=== PATIENT | female | born 1970 | race Caucasian/White ===

== ENCOUNTER → 2018-03-10 08:34 | Outpatient (CLI) | payer OTHER, SELFPAY ==
--- NOTE | 2018-03-10 | DI.MRI.S_ITS ---
PROCEDURE: MR HEAD/BRAIN WO CON INDICATIONS: MIGRAINE OSTEOPOROSIS TECHNIQUE: Noncontrast axial T1 spin echo, axial T2 fast spin echo, sagittal and axial FLAIR, coronal T2 fast spin echo, axial gradient echo, axial diffusion and ADC through the brain. COMPARISON: None. FINDINGS: Image quality: Excellent. CSF Spaces: Basal cisterns are patent. No extra-axial fluid collections. Ventricles are normal in size and shape. Brain: No intracranial masses or hemorrhage. Wilson/white matter interface is normal. Brainstem appears normal. Diffusion-weighted images demonstrate no acute ischemic insult. No chronic ischemic insults. Normal intravascular flow voids are present. Skull and face: Calvarium has normal marrow signal. Orbits appear normal. Sinuses: Sinuses and mastoids are clear. IMPRESSION: No intracranial disease process. Dictated by: Kimberlyn Rae MD, PhD on 03/10/2018 at 10:12 Approved by: Kimberlyn Rae MD, PhD on 03/10/2018 at 10:14
== END ==
PROVIDERS: PCP Naturopath; Visit Provider Naturopath
DX: G43.909 Migraine, unspecified, not intractable, without status migrainosus (principal); Z13.820 Encounter for screening for osteoporosis; M85.851 Other specified disorders of bone density and structure, right thigh
CPT/HCPCS: 70551; 77080

== ENCOUNTER 2019-09-07 16:49 | Emergency (ER) | payer OTHER, SELFPAY ==
[2019-09-07 16:59] VITALS: BP 139/84; PULSE 79; RESP 18; TEMP 36.3; O2SAT 100
--- NOTE | 2019-09-07 18:07 | ED.DIZZY ---
HPI - Dizziness General Chief Complaint: Dizziness Stated Complaint: DIZZY HEADACHE MIGRAINE TOLD BY EYE DOCTOR COME Time Seen by Provider: 09/07/19 18:06 Source: patient Mode of arrival: Ambulatory Limitations: no limitations History of Present Illness HPI Narrative: Female nonsmoker with history of Lyme disease presents with her in the chief complaint of headaches and some nausea for about three weeks. She went to see her regular provider today and she noticed that the patient's left eye seemed to not line up. She then called her railroad firer whom directed her to the ED. Patient has not had any recent injuries or trauma. She denies any other focal neurologic findings such as trouble with speech, numbness, tingling or weakness nor ataxia. Patient states she does not really know when her symptoms started but she does admit to double vision particularly when objects are close. MD complaint: dizziness Onset (ago): week(s) Timing: unsure History of similar episodes: No History of trauma: No Severity: mild Associated symptoms: vision changes Related Data Allergies Allergy/AdvReac Type Severity Reaction Status Date / Time Penicillins Allergy Unknown Verified 09/07/19 19:51 PENICILLIN Allergy Mild Uncoded 01/29/18 12:20 Review of Systems Constitutional Constitutional: Denies chills, Denies fatigue, Denies fever(s), Denies frequent falls, Denies lethargy and Denies weakness Eyes Eyes: Denies change in vision, Reports diplopia, Denies eye discharge, Denies irritation and Denies loss of vision ENT Ears, Nose, Mouth, and Throat: Denies change in voice, Denies dizziness, Denies neck pain, Denies sore throat and Denies throat swelling Cardiovascular Cardiovascular: Denies chest pain, Denies irregular heart rhythm, Denies lightheadedness, Denies palpitations, Denies dyspnea, Denies dyspnea on exertion and Denies orthopnea Respiratory Respiratory: Denies cough, Denies dyspnea, Denies dyspnea on exertion and Denies wheezing Gastrointestinal Gastrointestinal: Denies abdominal pain, Denies change in bowel habits, Denies diarrhea, Denies nausea and Denies vomiting Genitourinary Genitourinary: Denies hematuria, Denies flank pain, Denies urinary incontinence and Denies urinary urgency Musculoskeletal Musculoskeletal: Denies back pain, Denies muscle weakness, Denies neck pain, Denies numbness and Denies tingling Integumentary/Breasts Skin/Breast: Denies pruritus, Denies erythema, Denies rash and Denies wounds Neurologic Neurologic: Denies behavioral changes, Denies confusion, Denies dizziness, Denies frequent falls, Denies loss of vision, Denies numbness, Denies tingling and Denies weakness Psychiatric Psychiatric: Denies anxiety, Denies behavioral changes, Denies confusion, Denies depression, Denies homicidal ideation and Denies suicidal ideation Endocrine Endocrine: Denies fatigue, Denies flushing and Denies palpitations Hematologic/Lymphatic Hematologic/Lymphatic: Denies easy bruising Allergic/Immunologic Allergic/Immunologic: Denies urticaria, Denies throat swelling and Denies wheezing Patient History Medical History Celiac disease (Acute) Lyme disease (Acute) Surgical History History of third molar tooth extraction Status post laparoscopic supracervical hysterectomy Status post tonsillectomy and adenoidectomy Exam Narrative Exam Narrative: GENERAL: [49] year old patient appears stated age. Well-nourished, well-developed patient, in mild distress. HEAD: Atraumatic. Normocephalic. EYES: Pupils equal round and reactive. Extraocular motions intact in R eye, but L eye is slightly limited. With eyes looking to her left her L eye does not fully gaze laterally, however when looking to the R she has no trouble No scleral icterus. No injection or drainage. ENT: Nose without bleeding, purulent drainage. Throat without erythema, tonsillar hypertrophy or exudate. Airway patent. NECK: Trachea midline. Non tender CARDIOVASCULAR: Regular rate and rhythm without murmurs, gallops, or rubs. RESPIRATORY: Clear to auscultation. Breath sounds equal bilaterally. No wheezes, rales, or rhonchi. GASTROINTESTINAL: Abdomen soft, non-tender, nondistended. EXTREMITIES: No edema or joint tenderness. BACK: Nontender without deformity or crepitance. No flank tenderness. NEURO: AOx3. SKIN: No rash or erythema of visible areas Initial Vital Signs Initial Vital Signs: Vital Signs Temperature 97.4 F L 09/07/19 16:59 Pulse Rate 79 09/07/19 16:59 Respiratory Rate 18 09/07/19 16:59 Blood Pressure 139/84 09/07/19 16:59 Pulse Oximetry 100 09/07/19 16:59 Scores NIH Stroke Scale Level of Conciousness: Alert, keenly responsive Ask month/age: Answers both questions correctly. Open/close eyes, close hand: Performs both tasks correctly Best gaze horizontal: Partial gaze palsy, can be overcome by finger tracking, head turning Visual gonzales: No visual loss Facial palsy: Normal symetrical movement Left arm drift: No drift for full 10 sec Right arm drift: No drift for full 10 sec Left leg drift: No drift for full 10 sec Right leg drift: No drift for full 10 sec Limb ataxia: Absent Sensory on face/arms/legs: Normal, no sensory loss Best language: No aphasia, normal Dysarthria: Normal Extinction or inattention: No abnormality Total NIH Stroke scale score: 1 Course Orders Ordered: ED Orders 09/07/19 18:52 CT head/brain wo con Stat EKG-12 Lead Stat 09/07/19 19:25 Basic Metabolic Panel Stat Complete Blood Count AUTO DIFF Stat Partial Thromboplastin Time Stat Prothrombin Time INR Stat 09/07/19 19:40 MR stroke Stat 09/07/19 20:38 CT angio head and neck Stat Discontinued Medications Sodium Chloride (Normal Saline 0.9%) 1,000 mls @ 150 mls/hr IV CONT CANDY Last Infusion: 09/07/19 21:30 Dose: 0 mls/hr Documented by: Admin: 09/07/19 19:28 Dose: 150 mls/hr Documented by: LOU Consultations Consultation #1: call to stroke physician at [facility] upon receipt of normal imaging. He states workup is complete for now and that DC home with ophtho follow up is appropriate. Vital Signs Vital signs: Vital Signs - 8 hr 09/07/19 19:48 09/07/19 23:00 Pulse Rate 78 87 Respiratory Rate 18 18 Blood Pressure [Left Arm] 137/58 L 129/73 Pulse Oximetry 98 97 MDM - Dizziness Lab Data Result diagrams: 09/07/19 19:25 09/07/19 19:25 Labs: Lab Results 09/07/19 09/07/19 09/07/19 Range/Units 19:25 19:25 19:25 WBC 6.0 (4.5-11.0) X10^3/uL RBC 4.23 (4.0-5.2) X10^6/uL Hgb 13.5 (12.0-16.0) g/dL Hct 39.4 (36-46) % MCV 93.0 (80-100) fL MCH 31.8 (26-34) PG MCHC 34.2 (30-36) % RDW 12.4 (11.6-14.8) % Plt Count 273 (150-400) X10^3/uL Neut % (Auto) 62.7 (50-75) % Lymph % (Auto) 29.7 (25-40) % [place] % (Auto) 6.4 (3-14) % Eos % (Auto) 0.6 L (2-4) % Baso % (Auto) 0.6 (0-2) % Neut # (Auto) 3700 (0264-1195) /uL Lymph # (Auto) 1800 (7253-3785) /uL [place] # (Auto) 400 (0-900) /uL Eos # (Auto) 0 (0-450) /uL Baso # (Auto) 0 (0-100) /uL PT 11.3 (10.1-12.7) SECONDS INR 1.0 (0.9-1.3) APTT 33 (26.4-36.2) SECONDS Sodium 139 (137-145) mmol/L Potassium 4.3 (3.4-5.1) mmol/L Chloride 100 (98-107) mmol/L Carbon Dioxide 31 (22-32) mmol/L BUN 19 H (7-17) mg/dL Creatinine 0.60 (0.52-1.04) mg/dL Estimated GFR > 60.0 (>60) mL/min BUN/Creatinine Ratio 31.7 H (6-22) Glucose 94 (70-100) mg/dL Calcium 9.3 (8.4-10.2) mg/dL Imaging Data CT scan - head: Radiologist's impression: [address] [address] [address] Scan Report Signed Patient: Lorraine Siddiqi [facility]#: [id number] : 1970Acct:[id number] Age/Sex: 49 / FDate of Service: 09/07/19 Loc: ED Accession Number: [id number] Procedure: CT angio head and neck Ordering Provider: Nayan Beltre D.O. PROCEDURE: CT ANGIO HEAD AND NECK INDICATIONS: cranial 6 nerve palsy TECHNIQUE: Pre-contrast 4.5 mm thick sections acquired from the foramen magnum to the vertex. After the administration of intravenous contrast, 1 mm thick sections acquired from the aortic arch through the [place] of [place]. Post-contrast 4.5 mm thick sections then re-acquired from the foramen magnum to the vertex. 3-dimensional emuylbq-ohqsdeark-mhjbvremld (MIP) and/or volume rendering reformats were acquired of the central intracranial vasculature and neck separately. COMPARISON: [facility], MR, MR HEAD/BRAIN WO CON, 03/10/2018, 9:36. [facility], CT, CT HEAD/BRAIN WO CON, 09/07/2019, 18:54. FINDINGS: Image quality: Evaluation limited by venous opacification. BRAIN: CSF spaces: Basal cisterns are patent. No extra-axial fluid collections. Ventricles are normal in size and shape. Brain: No intracranial hematoma collection, mass, or mass effect. Wilson-white matter interface is preserved. No abnormal intracranial enhancement. Skull and face: Calvarium and facial bones appear intact, without suspicious lesions. Orbits appear normal. Sinuses: Sinuses and mastoids are clear. HEAD CT ANGIOGRAPHY: Anterior circulation: Intracranial internal carotid arteries are patent bilaterally. The paired anterior cerebral arteries are patent bilaterally. The middle cerebral arteries are patent bilaterally. The anterior communicating artery is patent. No high-grade stenosis, occlusion, or aneurysms identified. Posterior circulation: Visualized portions of the vertebral arteries demonstrate are patent bilaterally and join to form a patent basilar artery. The posterior cerebral arteries are patent bilaterally. The posterior communicating arteries appear patent without aneurysms. No high-grade stenoses, vascular occlusion, or aneurysm identified. NECK CT ANGIOGRAPHY: Carotid system: The great vessels demonstrate a conventional anatomy as they arise from the aortic arch. The origins of the common carotid arteries appear patent. The common carotid arteries demonstrate normal caliber and courses. The bifurcation regions are both widely patent. The internal carotid arteries demonstrate normal calibers and courses. Posterior circulation: The origins of the vertebral arteries both appear widely patent. The more superior extracranial portions of both vertebral arteries also demonstrate normal courses and calibers. They join to form a normal appearing basilar artery. Soft tissues: Visualized neck soft tissues demonstrate no suspicious abnormalities. Bones: No suspicious bony lesions. Visualized cervical spine appears normally aligned. IMPRESSION: 1. No discrete cerebral aneurysm. 2. No high-grade stenosis or occlusion of the central intracranial arteries. 3. No high-grade stenosis or occlusion of the head and neck arteries. The carotid bulbs appear widely patent. 4. No definite acute intracranial abnormality. Any quantitative measurements of stenosis were performed using NASCET criteria. Dictated by: Miguel Angel Urias M.D. on 09/07/2019 at 21:37 Approved by: Miguel Angel Urias M.D. on 09/07/2019 at 21:44 CTA Head/Neck: Radiologist's impression: [place] [address] CT Scan Report Signed Patient: Lorraine Siddiqi MMR#: [id number] : 1970Acct:[id number] Age/Sex: 49 / FDate of Service: 09/07/19 Loc: ED Accession Number: [id number] Procedure: CT angio head and neck Ordering Provider: Nayan Beltre D.O. PROCEDURE: CT ANGIO HEAD AND NECK INDICATIONS: cranial 6 nerve palsy TECHNIQUE: Pre-contrast 4.5 mm thick sections acquired from the foramen magnum to the vertex. After the administration of intravenous contrast, 1 mm thick sections acquired from the aortic arch through the [place] of [place]. Post-contrast 4.5 mm thick sections then re-acquired from the foramen magnum to the vertex. 3-dimensional ckvurtv-qogrhlcti-tpvdubybbj (MIP) and/or volume rendering reformats were acquired of the central intracranial vasculature and neck separately. COMPARISON: [facility], MR, MR HEAD/BRAIN WO CON, 03/10/2018, 9:36. [facility], CT, CT HEAD/BRAIN WO CON, 09/07/2019, 18:54. FINDINGS: Image quality: Evaluation limited by venous opacification. BRAIN: CSF spaces: Basal cisterns are patent. No extra-axial fluid collections. Ventricles are normal in size and shape. Brain: No intracranial hematoma collection, mass, or mass effect. Wilson-white matter interface is preserved. No abnormal intracranial enhancement. Skull and face: Calvarium and facial bones appear intact, without suspicious lesions. Orbits appear normal. Sinuses: Sinuses and mastoids are clear. HEAD CT ANGIOGRAPHY: Anterior circulation: Intracranial internal carotid arteries are patent bilaterally. The paired anterior cerebral arteries are patent bilaterally. The middle cerebral arteries are patent bilaterally. The anterior communicating artery is patent. No high-grade stenosis, occlusion, or aneurysms identified. Posterior circulation: Visualized portions of the vertebral arteries demonstrate are patent bilaterally and join to form a patent basilar artery. The posterior cerebral arteries are patent bilaterally. The posterior communicating arteries appear patent without aneurysms. No high-grade stenoses, vascular occlusion, or aneurysm identified. NECK CT ANGIOGRAPHY: Carotid system: The great vessels demonstrate a conventional anatomy as they arise from the aortic arch. The origins of the common carotid arteries appear patent. The common carotid arteries demonstrate normal caliber and courses. The bifurcation regions are both widely patent. The internal carotid arteries demonstrate normal calibers and courses. Posterior circulation: The origins of the vertebral arteries both appear widely patent. The more superior extracranial portions of both vertebral arteries also demonstrate normal courses and calibers. They join to form a normal appearing basilar artery. Soft tissues: Visualized neck soft tissues demonstrate no suspicious abnormalities. Bones: No suspicious bony lesions. Visualized cervical spine appears normally aligned. IMPRESSION: 1. No discrete cerebral aneurysm. 2. No high-grade stenosis or occlusion of the central intracranial arteries. 3. No high-grade stenosis or occlusion of the head and neck arteries. The carotid bulbs appear widely patent. 4. No definite acute intracranial abnormality. Any quantitative measurements of stenosis were performed using NASCET criteria. Dictated by: Miguel Angel Urias M.D. on 09/07/2019 at 21:37 Approved by: Miguel Angel Urias M.D. on 09/07/2019 at 21:44 MDM Narrative Medical decision making narrative: Multiple etiologies for patient's symptoms considered including: [Stroke versus tumor versus other] Findings and discharge diagnosis discussed with patient/family followed by verbalization of understanding Return precautions discussed with patient/family whom verbalize understanding. Discharge Plan Departure Patient Disposition: Home Clinical Impression: Cranial nerve palsy Qualifiers: Laterality: left Qualified Code(s): H49.22 - Sixth [abducent] nerve palsy, left eye Discharge Date/Time: 09/07/19 23:46 Instructions: DI for Double Vision Activity Restrictions/Additional Instructions: *You have been diagnosed with [double vision secondary to isolated left 6th cranial nerve palsy] *What to do: *Take medications as directed: Baby aspirin daily *Follow up with [facility], call for an appointment. Let them know you were seen in the Emergency Department and that we ask that you be seen in follow up *Return to ER if you should have any new, worsening or concerning symptoms Referrals: Romain Abla MD [Physician] - Riccardo Leon ND [Primary Care Provider] -
--- NOTE | 2019-09-07 18:52 | DI.CT.S_ITS ---
PROCEDURE: CT HEAD/BRAIN WO CON INDICATIONS: stroke symptoms TECHNIQUE: Noncontrast 4.5 mm thick angled axial sections acquired from the foramen magnum to the vertex, with coronal and sagittal reformats. For radiation dose reduction, the following was used: automated exposure control, adjustment of mA and/or kV according to patient size. COMPARISON: [facility], MR, MR HEAD/BRAIN WO CON, 03/10/2018, 9:36. FINDINGS: Image quality: Excellent. CSF spaces: Basal cisterns are patent. No extra-axial fluid collections. Ventricles are normal in size and shape. Brain: No intracranial hemorrhage, mass, or mass effect. [place]-white matter interface is preserved. Skull and face: Calvarium and visualized facial bones are intact, without suspicious lesions. Sinuses: Visualized sinuses and mastoids are clear. IMPRESSION: 1. No acute intracranial abnormality. Dictated by: Miguel Angel Urias M.D. on 09/07/2019 at 19:28 Approved by: Miguel Angel Urias M.D. on 09/07/2019 at 19:30
[2019-09-07] MEDS: SODIUM CHLORIDE 0.9% 1,000 ML 150 ML IV (19:28)
[2019-09-07 19:31] LABS: Add Manual Diff / Slide Review NO; Basophils Absolute Auto 0 /uL (0-100); Basophils Percent Auto 0.6 % (0-2); Eosinophils Absolute Auto 0 /uL (0-450); Eosinophils Percent Auto 0.6 % (2-4); Hematocrit 39.4 % (36-46); Hemoglobin 13.5 g/dL (12.0-16.0); Lymphocytes Absolute Auto 1800 /uL (1100-4500); Lymphocytes Percent Auto 29.7 % (25-40); Mean Corpuscular HGB Conc 34.2 % (30-36); Mean Corpuscular Hemoglobin 31.8 PG (26-34); Monocytes Absolute Auto 400 /uL (0-900); Monocytes Percent Auto 6.4 % (3-14); Neutrophils Absolute Auto 3700 /uL (1500-7000); Neutrophils Percent Auto 62.7 % (50-75); Platelet Count 273 X10^3/uL (150-400); Red Blood Cell Count 4.23 X10^6/uL (4.0-5.2); Red Cell Distribution Width 12.4 % (11.6-14.8)
[2019-09-07 19:38] LABS: Prothrombin Time 11.3 SECONDS (10.1-12.7)
[2019-09-07 19:41] LABS: PTT Partial Thromboplastin Tim 33 SECONDS (26.4-36.2)
[2019-09-07 19:42] LABS: BUN Creatinine Ratio 31.7 (6-22); Blood Urea Nitrogen 19 mg/dL (7-17); Calcium 9.3 mg/dL (8.4-10.2); Carbon Dioxide 31 mmol/L (22-32); Chloride 100 mmol/L (98-107); Estimated Glomerular Filt Rate > 60.0 mL/min (>60); Glucose 94 mg/dL (70-100); HEMOLYSIS 18 (0-50); Potassium 4.3 mmol/L (3.4-5.1); Sodium 139 mmol/L (137-145)
[2019-09-07 19:48] VITALS: BP 137/58; PULSE 78; RESP 18; O2SAT 98
--- NOTE | 2019-09-07 20:38 | DI.CT.S_ITS ---
PROCEDURE: CT ANGIO HEAD AND NECK INDICATIONS: cranial 6 nerve palsy TECHNIQUE: Pre-contrast 4.5 mm thick sections acquired from the foramen magnum to the vertex. After the administration of intravenous contrast, 1 mm thick sections acquired from the aortic arch through the [place] of [place]. Post-contrast 4.5 mm thick sections then re-acquired from the foramen magnum to the vertex. 3-dimensional vqfftfg-fptabtqes-kxbeytxgad (MIP) and/or volume rendering reformats were acquired of the central intracranial vasculature and neck separately. COMPARISON: [facility], MR, MR HEAD/BRAIN WO CON, 03/10/2018, 9:36. [facility], CT, CT HEAD/BRAIN WO CON, 09/07/2019, 18:54. FINDINGS: Image quality: Evaluation limited by venous opacification. BRAIN: CSF spaces: Basal cisterns are patent. No extra-axial fluid collections. Ventricles are normal in size and shape. Brain: No intracranial hematoma collection, mass, or mass effect. Wilson-white matter interface is preserved. No abnormal intracranial enhancement. Skull and face: Calvarium and facial bones appear intact, without suspicious lesions. Orbits appear normal. Sinuses: Sinuses and mastoids are clear. HEAD CT ANGIOGRAPHY: Anterior circulation: Intracranial internal carotid arteries are patent bilaterally. The paired anterior cerebral arteries are patent bilaterally. The middle cerebral arteries are patent bilaterally. The anterior communicating artery is patent. No high-grade stenosis, occlusion, or aneurysms identified. Posterior circulation: Visualized portions of the vertebral arteries demonstrate are patent bilaterally and join to form a patent basilar artery. The posterior cerebral arteries are patent bilaterally. The posterior communicating arteries appear patent without aneurysms. No high-grade stenoses, vascular occlusion, or aneurysm identified. NECK CT ANGIOGRAPHY: Carotid system: The great vessels demonstrate a conventional anatomy as they arise from the aortic arch. The origins of the common carotid arteries appear patent. The common carotid arteries demonstrate normal caliber and courses. The bifurcation regions are both widely patent. The internal carotid arteries demonstrate normal calibers and courses. Posterior circulation: The origins of the vertebral arteries both appear widely patent. The more superior extracranial portions of both vertebral arteries also demonstrate normal courses and calibers. They join to form a normal appearing basilar artery. Soft tissues: Visualized neck soft tissues demonstrate no suspicious abnormalities. Bones: No suspicious bony lesions. Visualized cervical spine appears normally aligned. IMPRESSION: 1. No discrete cerebral aneurysm. 2. No high-grade stenosis or occlusion of the central intracranial arteries. 3. No high-grade stenosis or occlusion of the head and neck arteries. The carotid bulbs appear widely patent. 4. No definite acute intracranial abnormality. Any quantitative measurements of stenosis were performed using NASCET criteria. Dictated by: Miguel Angel Urias M.D. on 09/07/2019 at 21:37 Approved by: Miguel Angel Urias M.D. on 09/07/2019 at 21:44
[2019-09-07 23:00] VITALS: BP 129/73; PULSE 87; RESP 18; O2SAT 97
--- NOTE | 2019-09-07 23:32 | PC.NURSE ---
upon return from CT, pts rt side midline unable to flush, contacted [facility] regarding line, spoke with [place], recommended interventions unsuccessful, line was then removed per recommendation, aware.
== END 2019-09-07 23:46 | disposition home or self-care (01) ==
PROVIDERS: Emergency Provider Emergency Medicine; PCP Naturopath
DX: H49.22 Sixth [abducent] nerve palsy, left eye (principal)
CPT/HCPCS: 36415; 70450; 70496; 70498; 80048; 85025; 85610; 85730; 93005; 96360; 96361; 99283; 99285

== ENCOUNTER → 2019-09-26 10:36 | Outpatient (CLI) | payer OTHER, SELFPAY ==
--- NOTE | 2019-09-26 | DI.RAD.S_ITS ---
PROCEDURE: XR KNEE RT 3V INDICATIONS: RT KNEE PAIN TECHNIQUE: 3 views of the knee were acquired. COMPARISON: None. FINDINGS: Bones: No fractures or dislocations. There is slight lateral tilt of the patella with mild joint space narrowing in the patellofemoral compartment. Minimal joint space narrowing is demonstrated in the medial compartment. No suspicious bony lesions. Soft tissues: There is a minimal joint effusion. No suspicious soft tissue calcifications. IMPRESSION: 1. No acute bony abnormality. 2. Minimal joint space narrowing in the medial compartment and mild narrowing in the lateral patellofemoral compartment. 3. Minimal joint effusion. Dictated by: Miguel Angel Urias M.D. on 09/26/2019 at 10:11 Approved by: Miguel Angel Urias M.D. on 09/26/2019 at 10:13
== END ==
PROVIDERS: PCP Naturopath; Visit Provider Naturopath
DX: M25.561 Pain in right knee (principal)
CPT/HCPCS: 73562

== ENCOUNTER → 2019-10-22 11:18 | Outpatient (CLI) | payer OTHER, SELFPAY ==
--- NOTE | 2019-10-22 | DI.RAD.S_ITS ---
PROCEDURE: XR CHEST 1V INDICATIONS: PICC LINE PLACEMENT TECHNIQUE: One view of the chest was acquired. COMPARISON: None. FINDINGS: Surgical changes and devices: Left-sided PICC line is seen with the tip projecting below the cavoatrial junction and should be withdrawn approximately 5 cm. Lungs and pleura: Lungs are clear. No pleural effusions or pneumothorax. Mediastinum: Mediastinal contours appear normal. Heart size is normal. Bones and chest wall: No suspicious bony lesions. Overlying soft tissues appear unremarkable. IMPRESSION: Left PICC line with the tip projecting below the cavoatrial junction and should be withdrawn approximately 5 cm. Findings personally telephoned and discussed with the referring clinician Riccardo Leon on 10/22/19 Dictated by: Lamin Mtz M.D. on 10/22/2019 at 13:57 Approved by: Lamin Mtz M.D. on 10/22/2019 at 13:59
== END ==
PROVIDERS: PCP Naturopath; Visit Provider Naturopath
DX: Z45.2 Encounter for adjustment and management of vascular access device (principal); A69.20 Lyme disease, unspecified
CPT/HCPCS: 71045

== ENCOUNTER → 2019-12-28 18:44 | Outpatient (CLI) | payer OTHER, SELFPAY ==
--- NOTE | 2019-12-28 | DI.MRI.S_ITS ---
PROCEDURE: MR KNEE RT WO CON INDICATIONS: Pain in right knee TECHNIQUE: Noncontrast sagittal PD fast spin echo and T2 fast spin echo with fat saturation, sagittal 3-D FLASH with fat saturation; coronal T1 spin echo and PD fast spin echo with fat saturation, and axial PD fast spin echo with fat saturation through the knee. COMPARISON: [facility], CR, XR KNEE RT 3V, 09/26/2019, 10:36. FINDINGS: Image quality: Excellent. Menisci: There is a large horizontal tear involving the body of the lateral meniscus. There is a meniscal cyst adjacent to the lateral meniscus. A linear high signal in the peripheral aspect of the posterior horn of the medial meniscus may be a small nondisplaced tear or intrasubstance degeneration. The meniscal root ligaments appear intact. Cruciate ligaments: The anterior and posterior cruciate ligaments appear intact. Medial structures: The medial collateral ligament appears intact. The semimembranosus tendon insertions and meniscocapsular junction appear intact. Visualized portions of the pes anserinus tendons appear normal. No abnormal bursal fluid. Lateral structures: The lateral collateral ligament appears irregular consistent with mild sprain. The biceps femoris tendon appears intact. The popliteus tendon appears normal. Iliotibial band appears normal. Anterior structures: The distal quadriceps appears thickened with increased signal consistent with tendinitis. The patellar tendons appear normal. Patellar alignment is normal. No femoral trochlear dysplasia or ventral trochlear prominence. No edema in the infrapatellar fat pad. Bones and cartilage: No bone marrow contusions or fractures. There is mild cartilage thinning and fibrillation of the medial and lateral femorotibial compartments. Joint space: There is small knee joint effusion. No Garcia's cyst. Normal appearing synovial plicae are incidentally noted. IMPRESSION: 1. Large horizontal tear of the body of the lateral meniscus and meniscocapsular separation. 2. Possible small nondisplaced horizontal tear versus intrasubstance degeneration of the posterior horn the medial meniscus. 3. Mild sprain of the lateral collateral ligament. 4. Quadriceps tendinitis. 5. Mild cartilage thinning and fibrillation of the medial and lateral femorotibial compartments. Dictated by: Erick Nixon M.D. on 12/29/2019 at 9:55 Approved by: Erick Nixon M.D. on 12/29/2019 at 12:04
== END ==
PROVIDERS: PCP Naturopath; Referring Provider Naturopath; Visit Provider Naturopath
DX: M25.561 Pain in right knee (principal); S83.281A Other tear of lateral meniscus, current injury, right knee, initial encounter; S83.421A Sprain of lateral collateral ligament of right knee, initial encounter; M25.461 Effusion, right knee; M76.891 Other specified enthesopathies of right lower limb, excluding foot
CPT/HCPCS: 73721

== ENCOUNTER 2021-03-30 21:12 | Emergency (ER) | payer OTHER, SELFPAY ==
[2021-03-30 21:14] VITALS: BP 126/76; PULSE 94; RESP 16; TEMP 37; O2SAT 99
--- NOTE | 2021-03-30 21:42 | ED.GENADULT ---
HPI - General Adult General Chief complaint: Ear Stated complaint: Ear/Jaw Pain Time Seen by Provider: 03/30/21 21:22 Source: patient Mode of arrival: Ambulatory Limitations: no limitations History of Present Illness HPI narrative: 51-year-old female who is here for evaluation of left ear and jaw pain. She states she has had issues with this left ear for many months but it has been worsening over the past couple days. She has pain when she opens her mouth. Also has pain above her left eye. Has not tried anything for the symptoms prior to arrival. No fevers. No cough. No problems breathing. Related Data Allergies Allergy/AdvReac Type Severity Reaction Status Date / Time Penicillins Allergy Unknown Verified 09/07/19 19:51 PENICILLIN Allergy Mild Uncoded 01/29/18 12:20 Review of Systems Constitutional Constitutional: Denies fever(s) and Denies headache(s) Eyes Eyes: Reports system reviewed and no additional complaints, except as documented ENT Ears, Nose, Mouth, and Throat: Denies dental pain, Denies vertigo, Denies dizziness, Reports otalgia, Reports facial pain, Denies headache(s) and Denies sore throat Cardiovascular Cardiovascular: Denies dyspnea Respiratory Respiratory: Denies cough and Denies dyspnea Integumentary/Breasts Skin/Breast: Denies rash Neurologic Neurologic: Denies vertigo, Denies dizziness and Denies headache(s) Hematologic/Lymphatic On Anticoagulants: No Allergic/Immunologic Allergic/Immunologic: Reports system reviewed and no additional complaints, except as documented Patient History Medical History Celiac disease Lyme disease Surgical History History of third molar tooth extraction Status post laparoscopic supracervical hysterectomy Status post tonsillectomy and adenoidectomy Social History Smoking Status: Never smoker Smoking Status: Never smoker alcohol intake frequency: a few times a week Alcohol type: wine Substance Use Type: does not use Exam Initial Vital Signs Initial Vital Signs: Vital Signs Temperature 98.6 F 03/30/21 21:14 Pulse Rate 94 H 03/30/21 21:14 Respiratory Rate 16 03/30/21 21:14 Blood Pressure 126/76 06/10/21 21:14 Pulse Oximetry 99 06/10/21 21:14 Const General: cooperative and comfortable Limitations: mental status not altered HENMT Head: normal to inspection and normocephalic Ears: EAC's normal and TM abnormal bulging (Left more than right) bilaterally, dull (Left more than right) bilaterally and with fluid behind the TM bilaterally; not erythematous Nose: external nose normal Mouth: oral mucosae normal Neck Lymphatic: lymphadenopathy (Anterior and posterior cervical and submandibular on the left) Resp Effort & Inspection: normal respiratory effort Skin Lesions: no lesions Rashes: no rashes Neuro General: patient alert and patient awake Cognition: normal cognition Speech: speech normal Extrem General: normal to inspection and capillary refill normal Psych Appearance: grossly normal and well kempt Course Vital Signs Vital signs: Vital Signs - 8 hr 03/30/21 21:14 Temperature 98.6 F Pulse Rate 94 H Respiratory Rate 16 Blood Pressure 126/76 Pulse Oximetry 99 Medical Decision Making MDM Narrative Medical decision making narrative: Patient does have fluid behind both of her eardrums however it is worse on the left than the right. Is not erythematous. She does have lymphadenopathy on the left. Suspect viral upper respiratory infection. No indication for antibiotics based on her symptoms today. We did discuss the use of [id number] antihistamines and also nasal sprays. Patient was given return precautions and follow-up instructions. She expressed understanding and agreement. Discharge Plan Departure Patient Disposition: Home Clinical Impression: Upper respiratory infection Instructions: DI for Viral Upper Respiratory Infection -- Adult Activity Restrictions/Additional Instructions: I recommend that this evening you take a dose of Benadryl as this may help you sleep and also will help with your symptoms. Tomorrow you can start taking an [id number] antihistamine such as Claritin or Kari or Zyrtec. You can purchase the generic versions of these medications. Also recommend that you start on a nasal spray such as Flonase or Nasonex. There is also nasal spray called Afrin that may help in the short term. Contact your primary provider for follow-up. Referrals: Riccardo Leon ND [Primary Care Provider] -
== END 2021-03-30 22:00 | disposition home or self-care (01) ==
PROVIDERS: Emergency Provider Emergency Medicine; PCP Naturopath
DX: J06.9 Acute upper respiratory infection, unspecified (principal)
CPT/HCPCS: 99281

== ENCOUNTER → 2021-04-08 14:16 | Outpatient (CLI) | payer OTHER, SELFPAY ==
--- NOTE | 2021-04-08 14:17 | DI.RAD.S_ITS ---
PROCEDURE: XR MANDIBLE MIN 4V INDICATIONS: L TMJ pain, jaw malocclusion TECHNIQUE: 4 views of the mandible were acquired. COMPARISON: None. FINDINGS: Bones: No fractures or dislocations. No suspicious bony lesions. No obvious degenerative arthritis involving the TMJs. Soft tissues: Visualized sinuses appear clear. No suspicious soft tissue densities. IMPRESSION: No evidence acute bony abnormality of the mandible. Dictated by: Ld Dela Cruz M.D. on 04/08/2021 at 13:54 Approved by: Ld Dela Cruz M.D. on 04/08/2021 at 13:55
== END ==
PROVIDERS: PCP Naturopath; Referring Provider Physician Assistant; Visit Provider Physician Assistant
DX: M26.622 Arthralgia of left temporomandibular joint (principal)
CPT/HCPCS: 70110

== ENCOUNTER → 2022-03-03 11:40 | Outpatient (CLI) | payer OTHER, SELFPAY | PROVIDERS: PCP Naturopath; Referring Provider Nurse Practitioner Critical Care Medicine; Visit Provider Nurse Practitioner Critical Care Medicine | DX: K13.6 Irritative hyperplasia of oral mucosa (principal) | CPT/HCPCS: 87070 ==

== ENCOUNTER → 2023-01-25 10:36 | Outpatient (CLI) | payer OTHER, SELFPAY ==
--- NOTE | 2023-01-25 | DI.MRI.S_ITS ---
PROCEDURE: MR TMJ WO CON INDICATIONS: Disorders of temporomandibular joint/facial pain TECHNIQUE: Axial T1 spin echo, coronal and sagittal PD fast spin echo through the temporomandibular joints, in both the closed- and open-mouth positions. COMPARISON: None. FINDINGS: Image quality: Excellent. Right: Joint is normally aligned on closed and open-mouth positioning. Articular disk demonstrates normal location and morphology. No bony erosions or osteophytes. Left: Joint is normally aligned on closed and open-mouth positioning. Articular disk demonstrates normal location and morphology, but does show increased signal in the body of the disc. No bony erosions or osteophytes. IMPRESSION: Normal right temporomandibular joint. Probable mucoid degeneration of the articular disc on the left without significant thinning Approved by: Marshall Tovar M.D. on 01/25/2023 at 15:43
== END ==
PROVIDERS: PCP Nurse Practitioner; Referring Provider Dentist; Visit Provider Dentist
DX: G50.1 Atypical facial pain (principal); M26.69 Other specified disorders of temporomandibular joint
CPT/HCPCS: 70336